=== PATIENT | male | born 1965 | race Caucasian/White ===

== ENCOUNTER 2019-01-17 07:41 | Emergency (ER) | payer BC, SELFPAY ==
[2019-01-17 07:42] VITALS: BP 148/101; PULSE 84; RESP 17; TEMP 36.5; O2SAT 98; BMI 36.1
--- NOTE | 2019-01-17 07:55 | ED.VIS.BACK ---
History of Present Illness Chief Complaint: Flank Pain Informant: Patient Onset: Days - January 13 Context: Onset with activity, Sudden Onset Injury: Bending - Pickup his son's toy Timing: Continuous Quality: Dull, Aching Location: Lumbar, Buttock - Left side Current Severity: Mild Maximum Severity: Moderate Worsened by: improves with: Movement, Bending, Lifting Relieved by: Nothing Associated Symptoms: - - There is no bowel or bladder dysfunction. There is no saddle paresthesia or anesthesia. There is no radicular pain. He denies abdominal pain, fever or chills. He denies dysuria, frequency, urgency or hematuria. Narrative: Patient is a middle-age male with history of hypertension and type 2 diabetes who presents with acute left lower back pain. Onset January 13 when he was bending over to pick out hand his son's toy. He felt a snap/pop. He denies any other symptoms. He denies radicular pain. He denies foot drop. He denies quadricep weakness going up or down steps. He has no constitutional symptoms. There is no history of back problems. Prior similar symptoms: No Recent Illness/Hospitalization: No - Past Medical History (1) History of type 2 diabetes mellitus Status: Acute (2) History of hypertension Status: Acute Past Medical History - Allergies and Home Meds Allergies/Adverse Reactions: Allergies Penicillins Allergy (Verified 01/17/19 07:42) Rash Primary Care Physician: Elidia Troncoso [Primary Care Provider] - Prior records reviewed: Yes Surgical History: noncontributory Lives: Spouse/ Significant Other, With Family Smoking Status: Former smoker Alcohol: None Drugs: None Review of Systems General: Denies: Chills, Fever, Malaise, Sweats, Weight loss ENT: Denies: Rhinorrhea, Sore throat Cardiovascular: Denies: Chest pain, Palpitations Respiratory: Denies: Dyspnea, Cough, Dyspnea on exertion Gastrointestinal: Denies: Abdominal pain, Nausea, Vomiting, Diarrhea, Constipation, Melena, Hematochezia, -, - Genitourinary: Denies: Dysuria, Hematuria, Frequency Musculoskeletal: Reports: Back pain. Denies: Myalgias, Arthralgias, Neck pain, Swelling, Extremity Pain, -, - Neurological: Denies: Weakness, Parasthesia, Numbness Endocrine: Denies: Polyuria, Polydipsia Hematologic: Denies: Easy bruising, Easy bleeding Allergy: Denies: Uticaria, Swelling of the mouth, Swelling of the tongue Physical Exam Vital Signs/Narrative: Vital Signs Temp Pulse Resp BP Pulse Ox 01/17/19 07:42 97.7 F L 84 17 148/101 H 98 Inital Vital Signs reviewed: Yes General: Well nourished, Well developed, Obese Head: Normocephalic, Atraumatic Eyes: Perrl, EOMI, Pale conjunctiva, Scleral icterus ENT: - - Nose, throat and ears appear normal Neck: Supple, No JVD Cardiovascular: Regular rate, Regular rhythm, No murmurs, Normal S1, Normal S2 Respiratory: No distress, CTA bilaterally, Chest nontender Abdomen: Soft, Nontender, Nondistended, Normal bowel sounds, No masses. Negative for: Hepatomegaly, Splenomegaly Rectal: Deferred Back: Normal Inspection, Paraspinal Tenderness - On the left near the posterior iliac spine., Negative SLR - Right, Negative SLR - Left. Negative for: CVA tenderness Extremeties: Nontender, No edema, Strong Pulses. Negative for: Tenderness Skin: Normal color, No rash, No Trauma. Negative for: Cyanosis, Diaphoresis, Jaundice Neuro: Alert, Oriented, Normal Strength, Normal Sensation, Normal DTR, Normal Gait, Normal Reflexes - 1+ patella and ankle, symmetric, Normal Cerebellar Reflexes: Right Patellar, Right Achilles, Left Patellar, Left Achilles. Negative for: Right Clonus, Right Babinski, Left Clonus, Left Babinski Psychological: Normal affect, Normal Mood Diagnostic/Tx/Re-eval - Medical Decision Making Patient's history and physical exam is consistent with muscle skeletal strain. There is no symptoms or physical findings to suggest acute herniated disc. There are no urinary symptoms to suggest renal/ureteral calculi. There is no history of direct trauma and there is no rash to raise concern for shingles. Since patient drove himself to the emergency room he was given a prescription. He was given an opiate analgesic since he has history of diabetes, hypertension and diabetic renal disease. Furthermore, he has been taking ibuprofen 800 mg 3 times daily with no benefit. ED Disposition - Plan for ED Patient: Disposition: Home or Assisted Living Diagnosis: Left-sided low back pain without sciatica Instructions: Back Sprain/Strain Prescriptions: Hydrocodone Bitart/Apap 5-325 [[place] 5MG-325MG] 1 tab PO Q6H PRN PRN 3 Days #10 tab PRN Reason: Pain Prescription Printed Referrals: Elidia Troncoso [Primary Care Provider] - Aurora Morataya MD [NON-STAFF] - 3-5 Days if not improving Additional Instructions: Apply ice 6-8 times a day for 20 to 30 minutes. Avoid heat for the next several days. Heat may make your pain worse. If pain becomes unbearable, unable to void, loss of bowel control or weakness in your left lower extremity return to the emergency department immediately.
== END 2019-01-17 09:04 | disposition home or self-care (01) ==
LOC: ED 08:09
PROVIDERS: Emergency Provider Emergency Medicine; Family Provider Internal Medicine; PCP Internal Medicine
DX: M54.5 Low back pain (principal); I10 Essential (primary) hypertension; E11.9 Type 2 diabetes mellitus without complications; Z87.891 Personal history of nicotine dependence; Z79.84 Long term (current) use of oral hypoglycemic drugs; Z79.899 Other long term (current) drug therapy
CPT/HCPCS: 99282

== ENCOUNTER 2019-12-01 16:26 | Emergency (ER) | payer BC, SELFPAY ==
[2019-12-01 16:26] VITALS: BP 140/117; PULSE 114; RESP 16; TEMP 36.4; O2SAT 97; BMI 35.2
--- NOTE | 2019-12-01 16:52 | ED.VIS.LOWEX ---
History of Present Illness Chief Complaint: Lower Extremity Injury Informant: Patient Onset: Month(s) - several Context: Gradual Onset Timing: Continuous Quality of Pain: Aching Location: right hip Current Severity: Severe Maximum Severity: Severe Worsened by: sitting, walking, lying on contralateral side Relieved by: lying on affected side - the right Associated Symptoms: Parasthesia - w/ burning into right medial thigh only. Negative for: Loss of Funtion Narrative: Patient states he has been having right hip bone pain, it has been there for months, he does not recall an injury to cause this is been gradual in onset, without any systemic symptoms. He is seen pain management, they are prescribed him tramadol and he presumes he is under contract, they were also given him back steroid injections. They set him up for an MRI of the right hip and he is supposed to get that 2 days away from now. He presents because his pain is getting to the point where it is out of control, he does not denote any acute worsening, it has just all been very gradual. No fevers. No skin abnormalities. No pain or numbness radiating below the knee. No bowel or bladder dysfunction or saddle anesthesia. - Past Medical History (1) History of hypertension Status: Chronic (2) History of type 2 diabetes mellitus Status: Chronic Past Medical History - Allergies and Home Meds Allergies/Adverse Reactions: Allergies Penicillins Allergy (Verified 12/01/19 16:29) Rash Primary Care Physician: Rekha Tineo MD [Primary Care Provider] - Surgical History: noncontributory Smoking Status: Former smoker Review of Systems General: Denies: Chills, Fever, Sweats Eyes: Denies: Visual changes - bilaterally, Diplopia ENT: Denies: Rhinorrhea, Sore throat Cardiovascular: Denies: Chest pain, Palpitations Respiratory: Denies: Dyspnea, Cough, Dyspnea on exertion Gastrointestinal: Denies: Abdominal pain, Nausea, Vomiting, Diarrhea, Melena, Hematochezia Genitourinary: Denies: Dysuria, Hematuria, Frequency Musculoskeletal: Reports: Back pain, Extremity Pain. Denies: Neck pain, Swelling Skin: Denies: Rash, Wounds Neurological: Reports: Numbness. Denies: Headache, Weakness Physical Exam Vital Signs/Narrative: Vital Signs Temp Pulse Resp BP Pulse Ox 12/01/19 16:26 97.6 F L 114 H 16 140/117 H 97 Inital Vital Signs reviewed: Yes - Extremity Exam Right Hip: - - Nontender greater trochanter. Negative for: Limited ROM - Able to internally and externally rotate without any groin discomfort, full range. At extremes of this, he does however have some discomfort at the lateral and posterior right ilium, toward the SI joint but not all the way there. No overlying skin abnormalities. Mild ASIS tenderness, but less than along the brim of the ilium laterally and posteriorly. Right Femur: - - All compartments soft and nontender Right Knee: Negative for: Limited ROM - And without bony tenderness General: Well nourished, Well developed, - - No acute distress Head: Normocephalic, Atraumatic Eyes: Perrl, EOMI ENT: No Trauma, Moist Mucous Membranes Neck: Nontender, Full ROM Abdomen: Soft, Nontender, Nondistended, Normal bowel sounds Back: Nontender, Negative SLR - Right - While sitting, Negative SLR - Left. Negative for: Spinal Tenderness Skin: Normal color, No rash, No Trauma Neurological: Alert, Oriented x3, Cranial nerves II-XII grossly intact, Normal Strength, Normal Sensation, Normal DTR, - - Able to stand without difficulty. Mildly antalgic gait. Psychological: Normal affect, Normal Mood Diagnostic/Tx/Re-eval - Medical Decision Making I discussed with patient that it is possible if I prescribe him narcotics, that he could lose his pain management contract. He states he does not want that at all, it is not looking for a way around his pain management physician. He asked his pain management doctor for something more for the pain, they wanted to wait until his MRI results were available. I offered him something for pain here, he was amenable to that has a ride home, so he was given an injection of morphine, prophylactic Zofran, and advised use occasional anti-inflammatories as well. Bursitis, tendinitis, SI joint dysfunction are all in the differential here, I think this is less likely radiculopathy but there certainly could be some peripheral neuropathy causing him the numbness in the medial thigh. ED Disposition - Plan for ED Patient: Disposition: Home or Assisted Living Diagnosis: Right hip pain Instructions: ED Sprain Hip, ED Bursitis, ED Sacroiliitis Referrals: Rekha Tineo MD [Primary Care Provider] - Doctor,Your [STAFF PHYSICIAN] - 3-5 Days if not improving (Primary care and/or pain management)
[2019-12-01] MEDS: Morphine 4 MG/ML Syringe IM (17:29)
[2019-12-01] MEDS: Ondansetron ODT 4 MG Tablet 8 MG PO (17:29)
== END 2019-12-01 17:51 | disposition home or self-care (01) ==
LOC: ED 17:27
PROVIDERS: Emergency Provider Emergency Medicine; PCP Student in an Organized Health Care Education/Training Program
DX: M25.551 Pain in right hip (principal); I10 Essential (primary) hypertension; E11.9 Type 2 diabetes mellitus without complications; Z79.84 Long term (current) use of oral hypoglycemic drugs; Z79.899 Other long term (current) drug therapy; Z87.891 Personal history of nicotine dependence
CPT/HCPCS: 96372; 99281

== ENCOUNTER → 2019-12-03 08:36 | Outpatient (CLI) | payer BC, SELFPAY ==
[2019-12-01 16:26] VITALS: BMI 35.2
--- NOTE | 2019-12-03 08:58 | MRI_ITS ---
STUDY: MRI RIGHT HIP REASON FOR EXAM: Male, 54 years old. rt hip pain x 1year, pain posterior rt hip and low back TECHNIQUE: Standardized fat and water weighted pulse sequences were obtained in all 3 orthogonal planes. Images of the entire pelvis are included on several sequences. COMPARISON: None. FINDINGS: No bone marrow edema or fractures or avascular necrosis of the hips. No lytic or blastic lesions or malignant process of the bony structures or soft tissues. No fluid collections or masses are present. No significant subcutaneous edema. No demonstrated osteophytes or erosions or hip joint effusions. Small bilateral fat-containing inguinal hernias are present. Normal hip joints without articular joint space narrowing. Normal acetabulum. Normal labrum. No demonstrated labral degeneration or tears or detachment or para labral cysts. Normal femoral head. Normal femoral neck and intratrochanteric region. Normal right gluteus minimus, medius and iliopsoas tendons and distal insertions. Mild left gluteal tendinosis is present at the greater trochanteric insertion site. There is no trochanteric, iliopsoas or iliopectineal bursitis. Normal superior and inferior pubic rami. Normal pubic symphysis. Normal ischial tuberosity. Normal origin of the hamstring tendons. Normal visualized iliac wing, sacroiliac joint, and sacral ala. Normal visualized soft tissue structures of the pelvis. MRI/Lower Ext Joint Only (Routine) IMPRESSION: Unremarkable MRI of the right hip/pelvis. 1. No bone marrow edema or fractures or avascular necrosis of the hips. No lytic or blastic lesions or malignant process of the bony structures or soft tissues. 2. No fluid collections or masses are present. No significant subcutaneous edema. 3. No demonstrated osteophytes or erosions or hip joint effusions. 4. No demonstrated labral tears or detachment. 5. Mild left gluteal tendinosis is present at the greater trochanteric insertion site. Electronically Signed: Jensen Sandhu MD at 20:35 EDT , Service support ,
== END ==
PROVIDERS: PCP Student in an Organized Health Care Education/Training Program; Referring Provider Nurse Practitioner Family; Visit Provider Nurse Practitioner Family
DX: M25.551 Pain in right hip (principal)
CPT/HCPCS: 73721

== ENCOUNTER → 2019-12-27 12:53 | Outpatient (CLI) | payer BC, SELFPAY ==
[2019-12-01 16:26] VITALS: BMI 35.2
--- NOTE | 2019-12-27 12:56 | CT_ITS ---
STUDY: CT ABDOMEN AND PELVIS WITH CONTRAST REASON FOR EXAM: Male, 54 years old. RT GROIN PAIN 1 1/2 YRS. RADIATION DOSAGE (If Supplied By Facility): CTDIvol = ( 12.85 ) mGy, DLP = ( 1461.79 ) mGycm TECHNIQUE: Transaxial images were obtained from the dome of the diaphragm to the symphysis pubis with oral contrast. Oral and amp; IV Breeza and amp; 100mL Isovue-300 was administered. Sagittal and coronal images were reconstructed. Individualized dose optimization techniques were used for this CT. COMPARISON: None. FINDINGS: The visualized lung bases are unremarkable. The visualized portions of the heart are within normal limits. There is decreased attenuation of the liver consistent with steatosis. Normal gallbladder and extrahepatic biliary system. Normal spleen. Normal pancreas. Normal bilateral adrenal glands. Normal right kidney. Normal left kidney. Normal visualized stomach. Normal small intestine. Normal colon. The appendix is visualized and appears normal. There is scattered atherosclerotic calcification of the abdominal aorta, without a demonstrated aneurysm. Normal inferior vena cava. Normal retroperitoneum. Normal urinary bladder. Moderate sized inguinal hernias containing fat slightly larger on the right side. Small benign appearing bilateral inguinal lymph nodes. Small umbilical hernia containing fat. Normal osseous structures. CT/Abdomen/Pelvis WITH Contrast IMPRESSION: Bilateral pneumonia is right greater than left. Fatty fixation of the liver. Electronically Signed: Maximino Beckett, at 13:38 EDT , Service support ,
[2019-12-27 13:15] LABS: CREATININE FINGERSTICK 0.9 mg/dL (0.70-1.30); EGFR FINGERSTICK > 60.0000 mL/min (>60)
== END ==
PROVIDERS: PCP Student in an Organized Health Care Education/Training Program; Referring Provider Student in an Organized Health Care Education/Training Program; Visit Provider Student in an Organized Health Care Education/Training Program
DX: K40.20 Bilateral inguinal hernia, without obstruction or gangrene, not specified as recurrent (principal); K76.0 Fatty (change of) liver, not elsewhere classified; J18.9 Pneumonia, unspecified organism; R10.31 Right lower quadrant pain
CPT/HCPCS: 74177; Q9967